=== PATIENT | male | born 1980 | race African-American/Black ===

== ENCOUNTER 2017-01-17 13:03 | Emergency (ER) ==
[2017-01-17 13:03] VITALS: BMI 24.3
[2017-01-17 13:06] VITALS: BP 135/90; TEMP 97.9
--- NOTE | 2017-01-17 13:19 | ED.PDOC ---
General ED Provider: Dr. JANNY RAMOS JR Chief Complaint: Sore Throat Stated Complaint: c/o sore throat and nasal congestion. c/o bodyaches and fatigue. [ End ]2 days 97.9 78 16 95% 135/90 5/10 Time Seen by Physician: 13:19 Mode of Arrival: Walk-In Information Source: Patient Exam Limitations: No limitations Nursing and Triage Documentation Reviewed and Agree: No Review of Systems - Review Of Systems Constitutional: Reports: Malaise, Weakness Eyes: Reports: No symptoms Ears, Nose, Mouth, Throat: Reports: Throat pain Respiratory: Reports: Cough Cardiac: Reports: No symptoms GI: Reports: No symptoms : Reports: No symptoms Musculoskeletal: Reports: No symptoms Skin: Reports: No symptoms Neurological: Reports: No symptoms Endocrine: Reports: No symptoms Hematologic/Lymphatic: Reports: No symptoms All Other Systems: Other Past Medical History - Past Medical History Previously Healthy: Yes Endocrine: Reports: None Cardiovascular: Reports: None Respiratory: Reports: None Hematological: Reports: None Gastrointestinal: Reports: Crohn's Genitourinary: Reports: None Neuro/Psych: Reports: None Musculoskeletal: Reports: None Cancer: Reports: None - Surgical History General Surgical History: Reports: None - Family History Family History: Reports: Unknown - Social History Smoking Status: Current every day smoker, Light tobacco smoker Hx Substance Use: No Alcohol Screening: Occasionally Physical Exam - Physical Exam Appearance: Well-appearing Ill-appearing: Moderate Pain Distress: Moderate Eyes: SAYRA, EOMI, Conjunctiva clear ENT: Nose normal, Oropharynx normal, Erythema Neck: Supple Respiratory: Airway patent, Breath sounds diminished, Rhonchi Cardiovascular: RRR, Pulses normal, No rub, No murmur GI/: Soft, Nontender, No masses, Bowel sounds normal, No Organomegaly Musculoskeletal: Normal strength, ROM intact, No edema, No calf tenderness Skin: Warm, Dry, Normal color Neurological: Sensation intact, Motor intact, Reflexes intact, Cranial nerves intact, Alert, Oriented Critical Care Note - Critical Care Note Total Time (mins): 0 Course - Course Vital Signs: Temp Pulse Resp BP Pulse Ox 01/17/17 13:04 97.9 F 78 16 135/90 95 Departure - Departure Time of Disposition: 14:00 Disposition: HOME SELF-CARE Discharge Problem: Sore throat symptom Instructions: Pharyngitis (ED) Condition: Good Pt referred to PMD for follow-up: Yes Additional Instructions: Robitussin DM or similar for cough Chloraseptic or similar for sore throat Tylenol and Motrin for aches and pain and fever increase fluids recheck if fever over 101.0 or if worse may follow up with PMD or Kendall clinci Allergies/Adverse Reactions: Allergies No Known Allergies Allergy (Unverified 01/17/17 13:06) Home Medications: Ambulatory Orders 1 [No Reported Medications] 01/17/17
--- NOTE | 2017-01-17 13:47 | DI ---
EXAM: PA and lateral views of the chest HISTORY: Cough COMPARISON: None FINDINGS: The cardiomediastinal silhouette is normal. There is no pneumothorax or pleural effusion . There is no consolidation, nodule or mass. The osseous structures are unremarkable. IMPRESSION: No acute cardiopulmonary process
[2017-01-17 13:51] LABS: FLU INTERNAL QC INTERNAL QC VALID; RAPID FLU A NEGATIVE (NEGATIVE); RAPID FLU B NEGATIVE (NEGATIVE)
== END 2017-01-17 14:12 | disposition home or self-care (01) ==
LOC: ED 13:03
DX: J02.9 Acute pharyngitis, unspecified (principal); F17.210 Nicotine dependence, cigarettes, uncomplicated
CPT/HCPCS: 87651; 87804; 87880; 99283